=== PATIENT | female | born 1970 | race Caucasian/White ===

== ENCOUNTER 2021-06-06 08:44 | Emergency (ER) | payer BC ==
[~2021-06-06] VITALS: Ht 162.6 cm; Wt 100.0 kg
[2021-06-06 08:47] VITALS: BP 161/77
[2021-06-06] MEDS ORDERED: HYDR-3972 PO (11:00)
[2021-06-06] MEDS ORDERED: HYDROcodone/acetaminophen 10/325mg tab PO ONE (11:05)
== END 2021-06-06 11:33 | disposition home or self-care (01) ==
LOC: ER 08:45
DX: S93.401A Sprain of unspecified ligament of right ankle, initial encounter (principal); X58.XXXA Exposure to other specified factors, initial encounter; Y93.89 Activity, other specified; Y92.89 Other specified places as the place of occurrence of the external cause; Y99.8 Other external cause status
CPT/HCPCS: 73610; 99285